=== PATIENT | female | born 1995 | race Hispanic/Latino ===

== ENCOUNTER 2023-01-15 11:24 | Emergency (ER) | payer SELFPAY ==
[2023-01-15] MEDS ORDERED: NA CHLORIDE 0.9% 500 ML ONE (12:31)
[2023-01-15] MEDS ORDERED: ACETAMINOPHEN 500 MG TAB ONE (12:31)
[2023-01-15 12:34] LABS: Specific Gravity 1.023 (1.005-1.030); Urine Bacteria None Seen /HPF (<20); Urine Bilirubin NEGATIVE (Negative); Urine Blood Trace (Negative); Urine Clarity Clear (Clear); Urine Color Light-Yellow (Yellow); Urine Glucose NEGATIVE (Negative); Urine Mucus Slight /HPF (None Seen); Urine Protein NEGATIVE (Negative); Urine RBC <5 /HPF (None Seen); Urine Urobilinogen Normal (Normal)
[2023-01-15 12:35] LABS: Hematocrit 37.1 % (36.0-45.0); Lymphocytes % 33.7 % (15.3-44.8); MCV 92.9 fL (80-100); Platelets 397 thou/uL (152-406)
[2023-01-15 12:37] LABS: Specific Gravity 1.023 (1.005-1.030)
[2023-01-15 12:49] LABS: Albumin 3.6 g/dL (3.4-5.0); Bilirubin Total 0.2 mg/dL (0.2-1.0); Potassium 3.7 mEq/L (3.5-5.1); Protein, Total 7.4 g/dL (6.4-8.2)
--- NOTE | 2023-01-15 14:27 | RAD REPORT ---
EXAM DESCRIPTION: US - Transvaginal OB - 01/15/2023 1:42 pm CLINICAL HISTORY: ABD PAIN COMPARISON: No comparisons FINDINGS: Wall gestational sac identified with mean sac diameter of 6 millimeters. No pole yasir ntified. The right ovary measures 3.4 x 3.1 x 2.6 cm with volume of 14 cc. The left ovary was not vis ualized and was presumably obscured by bowel gas. Small complex lesion in the right ovary likely a co rpus luteum and measures 2 cm . IMPRESSION: Gestational sac identified measuring 5 week 1 day. No pole or heart tones id entified likely due to early dates.
--- NOTE | 2023-01-15 14:50 | ER ---
Nurse's Notes [facility] Name: Denita Sánchez Age: 27 yrs Sex: Female : 1995 Arrival Date: 01/15/2023 Time: 11:24 Bed 3 Private MD: Diagnosis: Lower abdominal pain, unspecified; related conditions, unspecified, first trimester Presentation: 01/15 11:47 Chief complaint: Patient states: missed her period, had a positive UPT and last night iw she started having lower abd pain , LMP December 07, denies vaginal bleeding. Coronavirus screen: At this time, the client does not indicate any symptoms associated with coronavirus-19. Ebola Screen: Patient negative for fever greater than or equal to 101.5 degrees Fahrenheit, and additional compatible Ebola Virus Disease symptoms Patient denies exposure to infectious person. Patient denies travel to an Ebola-affected area in the 21 days before illness onset. No symptoms or risks identified at this time. Initial Sepsis Screen: Does the patient meet any 2 criteria? No. Patient's initial sepsis screen is negative. Does the patient have a suspected source of infection? No. Patient's initial sepsis screen is negative. Risk Assessment: Do you want to hurt yourself or someone else? Patient reports no desire to harm self or others. Onset of symptoms was January 15, 2023. 11:47 Method Of Arrival: Ambulatory iw 11:47 Acuity: CRICKET 3 iw Triage Assessment: 12:15 General: Appears in no apparent distress. Behavior is calm. Pain: Complains of pain in ss head and pelvis. GI: Abdomen is flat. [employer]: 11:49 3, Living 2, LMP 12/07/2022 iw Historical: - Allergies: 11:49 No Known Allergies; iw - Immunization history:: Adult Immunizations unknown. - Social history:: Patient/guardian denies using alcohol, street drugs, caffeine, tobacco products, Smoking status: Patient denies any tobacco usage or history of. - Family history:: not pertinent. Screenin:38 [facility] ED Fall Risk Assessment (Adult) History of falling in the last 3 months, ss including since admission No falls in past 3 months (0 pts) Confusion or Disorientation No (0 pts) Intoxicated or Sedated No (0 pts) Impaired Gait No (0 pts) Mobility Assist Device Used No (0 pt) Altered Elimination No (0 pt) Score/Fall Risk Level 0 - 2 = Low Risk Oriented to surroundings, Maintained a safe environment. Abuse screen: Denies threats or abuse. Denies injuries from another. Nutritional screening: No deficits noted. Tuberculosis screening: No symptoms or risk factors identified. Assessment: 12:15 Reassessment: Patient appears in no apparent distress at this time. Patient and/or ss family updated on plan of care and expected duration. Pain level reassessed. Patient is alert, oriented x 3, equal unlabored respirations, skin warm/dry/pink. General: Appears in no apparent distress. comfortable, Behavior is calm, cooperative. Pain: Complains of pain in pelvis and head. Neuro: Level of Consciousness is awake, alert, obeys commands, Oriented to person, place, time, situation. 13:34 Reassessment: Patient appears in no apparent distress at this time. Patient and/or ss family updated on plan of care and expected duration. Pain level reassessed. Patient is alert, oriented x 3, equal unlabored respirations, skin warm/dry/pink. patient returned to room from [facility]. 14:30 Reassessment: Patient appears in no apparent distress at this time. Patient and/or db family updated on plan of care and expected duration. Pain level reassessed. Patient is alert, oriented x 3, equal unlabored respirations, skin warm/dry/pink. Patient states feeling better. 15:28 GI: Bowel sounds present X 4 quads. Abd is soft and non tender X 4 quads. ko1 Vital Signs: 11:49 BP 108 / 47; Pulse 71; Resp 16; Temp 98.1; Pulse Ox 100% ; iw 12:41 BP 104 / 63; Pulse 74; Resp 18; Pulse Ox 100% on R/A; mb9 15:27 BP 110 / 68; Pulse 70; Resp 16; Pulse Ox 99% ; ko1 ED Course: 11:25 Patient arrived in ED. im 11:25 Blanca Maradiaga MD is Attending Physician. cp3 11:48 Triage completed. iw 12:18 Ruth Romano, ANA is Primary Nurse. ss 12:25 Inserted saline lock: 20 gauge in right antecubital area, using aseptic technique. ss Blood collected. 13:35 Patient placed in an exam room, on a stretcher, on pulse oximetry. ko1 13:38 Patient has correct armband on for positive identification. Bed in low position. Call light in reach. Side rails up X 1. 13:44 US Transvaginal Ob In Process Unspecified. EDMS 14:47 Sanjiv Terrell MD is Referral Physician. cp3 15:27 No provider procedures requiring assistance completed. IV discontinued, intact, ko1 bleeding controlled, No redness/swelling at site. Pressure dressing applied. 15:27 Provided Education on: NA. ko1 15:33 Primary Nurse role handed off by Ruth Romano, RN snw 15:33 Sadia Carrasco, RN is Primary Nurse. ko1 15:36 Primary Nurse role handed off by Sadia Carrasco, ANA snw Administered Medications: 12:20 Drug: Acetaminophen PO 500 mg Route: PO; ss 15:39 Follow up: Response: No adverse reaction db 12:20 Drug: NS 0.9% IV 500 ml Route: IV; Rate: bolus; Site: right antecubital; ss 15:39 Follow up: Response: No adverse reaction; IV Status: Completed infusion; IV Intake: db 500ml Medication: 15:27 VIS not applicable for this client. ko1 Intake: 15:39 IV: 500ml; Total: 500ml. db Outcome: 14:49 Discharge ordered by . cp3 15:27 Discharged to home ambulatory, with family. ko1 15:27 Condition: stable 15:27 Discharge instructions given to patient, family, Instructed on discharge instructions, follow up and referral plans. Demonstrated understanding of instructions, follow-up care. 15:29 Patient left the ED. ko1 15:34 Patient left the ED. ko1 15:44 Patient left the ED. snw Signatures: Dispatcher [employer] EDWI Debora Fay, COMMUNITY LIVING COACH-C COMMUNITY LIVING COACH-Csnw Blanca Maradiaga MD MD cp3 Mamta Capellan RN RN iw Ruth Romano RN RN Sadia Carrasco, ANA RN ko1 Margarita Crouch, ANA RN db Alondra Yu RN RN mb9 Dilcia Monsivais Corrections: (The following items were deleted from the chart) 11:49 11:47 Chief complaint: Patient states: missed her period, had a positive UPT and last iw night she started having lower abd pain , LMP December 07 iw
--- NOTE | 2023-01-15 14:50 | EDPHYS ---
Physician Documentation [facility] Name: Denita Sánchez Age: 27 yrs Sex: Female : 1995 Arrival Date: 01/15/2023 Time: 11:24 Bed 3 Private MD: JAIME Physician Blanca Maradiaga HPI: 01/15 12:50 This 27 yrs old Female presents to ER via Ambulatory with complaints of Abdominal Pain, cp3 Low Back Pain, possible . 12:50 Patient is a 27-year-old female who endorses lower abdominal cramping and discomfort cp3 rated as 5 out of 10 discomfort to the left lower quadrant with radiation to the back. The patient endorses she had a positive test a few days ago but not really sure if she is her last menstrual period was possibly 2 months ago. The patient denies any vaginal bleeding or discharge. The patient denies fever, chills, nausea, vomiting, diarrhea.. [employer]: 11:49 3, Living 2, LMP 12/07/2022 iw Historical: - Allergies: 11:49 No Known Allergies; iw - Immunization history:: Adult Immunizations unknown. - Social history:: Patient/guardian denies using alcohol, street drugs, caffeine, tobacco products, Smoking status: Patient denies any tobacco usage or history of. - Family history:: not pertinent. ROS: 12:51 Constitutional: Negative for fever, chills, and weight loss, Eyes: Negative for injury, cp3 pain, redness, and discharge, ENT: Negative for injury, pain, and discharge, Neck: Negative for injury, pain, and swelling, Cardiovascular: Negative for chest pain, palpitations, and edema, Respiratory: Negative for shortness of breath, cough, wheezing, and pleuritic chest pain, Back: Negative for injury and pain, MS/Extremity: Negative for injury and deformity, Skin: Negative for injury, rash, and discoloration, Neuro: Negative for headache, weakness, numbness, tingling, and seizure, Psych: Negative for depression, anxiety, suicide ideation, homicidal ideation, and hallucinations, Allergy/Immunology: Negative for hives, rash, and allergies, Endocrine: Negative for neck swelling, polydipsia, polyuria, polyphagia, and marked weight changes, Hematologic/Lymphatic: Negative for swollen nodes, abnormal bleeding, and unusual bruising. 12:51 Abdomen/GI: Positive for abdominal pain. Exam: 12:51 Constitutional: This is a well developed, well nourished patient who is awake, alert, cp3 and in no acute distress. Head/Face: Normocephalic, atraumatic. Eyes: Pupils equal round and reactive to light, extra-ocular motions intact. Lids and lashes normal. Conjunctiva and sclera are non-icteric and not injected. Cornea within normal limits. Periorbital areas with no swelling, redness, or edema. ENT: Nares patent. No nasal discharge, no septal abnormalities noted. Tympanic membranes are normal and external auditory canals are clear. Oropharynx with no redness, swelling, or masses, exudates, or evidence of obstruction, uvula midline. Mucous membranes moist. Neck: Trachea midline, no thyromegaly or masses palpated, and no cervical lymphadenopathy. Supple, full range of motion without nuchal rigidity, or vertebral point tenderness. No Meningismus. Chest/axilla: Normal chest wall appearance and motion. Nontender with no deformity. No lesions are appreciated. Cardiovascular: Regular rate and rhythm with a normal S1 and S2. No gallops, murmurs, or rubs. Normal PMI, no JVD. No pulse deficits. Respiratory: Lungs have equal breath sounds bilaterally, clear to auscultation and percussion. No rales, rhonchi or wheezes noted. No increased work of breathing, no retractions or nasal flaring. Skin: Warm, dry with normal turgor. Normal color with no rashes, no lesions, and no evidence of cellulitis. MS/ Extremity: Pulses equal, no cyanosis. Neurovascular intact. Full, normal range of motion. Neuro: Awake and alert, GCS 15, oriented to person, place, time, and situation. Cranial nerves II-XII grossly intact. Motor strength 5/5 in all extremities. Sensory grossly intact. Cerebellar exam normal. Normal gait. Psych: Awake, alert, with orientation to person, place and time. Behavior, mood, and affect are within normal limits. 12:51 Abdomen/GI: Patient with mild left lower quadrant abdominal versus pelvic tenderness without guarding or rebound. Patient endorses no vaginal bleeding or discharge and declined pelvic exam at this time. Vital Signs: 11:49 BP 108 / 47; Pulse 71; Resp 16; Temp 98.1; Pulse Ox 100% ; iw 12:41 BP 104 / 63; Pulse 74; Resp 18; Pulse Ox 100% on R/A; mb9 15:27 BP 110 / 68; Pulse 70; Resp 16; Pulse Ox 99% ; ko1 MDM: 11:39 Patient medically screened. cp3 12:51 Differential diagnosis: Differential diagnosis includes: UTI, pelvic pain in , cp3 ectopic , colitis, renal stone. Data reviewed: vital signs, nurses notes. 01/15 12:04 Order name: CBC with Diff; Complete Time: 12:59 cp3 01/15 12:04 Order name: Comprehensive Metabolic Panel; Complete Time: 12:59 cp3 01/15 12:04 Order name: Urinalysis W/Microscopic; Complete Time: 12:59 cp3 01/15 12:04 Order name: Test, Urine; Complete Time: 13:56 cp3 01/15 12:50 Order name: HCG-Quantitative; Complete Time: 13:43 cp3 01/15 12:50 Order name: US Transvaginal Ob; Complete Time: 14:29 cp3 01/15 12:04 Order name: Saline Lock; Complete Time: 12:18 cp3 Administered Medications: 12:20 Drug: Acetaminophen PO 500 mg Route: PO; ss 15:39 Follow up: Response: No adverse reaction db 12:20 Drug: NS 0.9% IV 500 ml Route: IV; Rate: bolus; Site: right antecubital; ss 15:39 Follow up: Response: No adverse reaction; IV Status: Completed infusion; IV Intake: db 500ml Disposition Summary: 01/15/23 14:49 Discharge Ordered Location: Home cp3 Condition: Stable cp3 Diagnosis - Lower abdominal pain, unspecified cp3 - related conditions, unspecified, first trimester cp3 Followup: cp3 - With: Sanjiv Terrell MD - When: - Reason: Further diagnostic work-up Followup: snw - With: Private Physician - When: 1 week - Reason: Recheck today's complaints, Continuance of care, Re-evaluation by your physician Discharge Instructions: - Discharge Summary Sheet cp3 - Abdominal Pain During , Yiis-yd-Iade cp3 Forms: - Work release form snw - Medication Reconciliation Form cp3 - Thank You Letter cp3 - Antibiotic Education cp3 - Prescription Opioid Use cp3 - Patient Portal Instructions cp3 Signatures: Dispatcher [employer] EDBlanca Torres MD MD cp3 Mamta Capellan, RN RN iw Ruth Romano RN RN ss Sadia Carrasco RN RN ko1 Margarita Crouch RN db Corrections: (The following items were deleted from the chart) 13:44 12:50 OB Limited+US.RAD.BRZ ordered. EDMS EDMS
[2023-01-15 15:50] VITALS: TEMP 98.1
[2023-01-15 16:01] VITALS: BP 110/68; O2SAT 99
== END 2023-01-15 15:44 | disposition home or self-care (01) ==
LOC: ER 11:24
DX: O26.891 Other specified pregnancy related conditions, first trimester (principal); Z3A.01 Less than 8 weeks gestation of pregnancy
CPT/HCPCS: 36415; 76817; 80053; 81001; 81025; 84702; 85025; J7040